=== PATIENT | male | born 2000 | race Two or more races ===

== ENCOUNTER 2020-03-17 07:58 | Emergency (ER) | payer MEDICAID ==
[~2020-03-17] VITALS: Ht 177.8 cm; Wt 90.9 kg
[2020-03-17 08:20] VITALS: BP 127/82
[2020-03-17] MEDS ORDERED: ONDANSETRON HCL 4 MG/2 ML VIAL IM ONE (09:00)
[2020-03-17] MEDS ORDERED: KETOROLAC TROMETHAMINE 30 MG/ML VIAL IM ONE (09:00)
[2020-03-17] MEDS ORDERED: ACETAMINOPHEN 500 MG TABLET PO ONE (09:00)
[2020-03-17 11:32] LABS: INFLUENZA TYPE A NEGATIVE FOR TYPE A (NEGATIVE); INFLUENZA TYPE B NEGATIVE FOR TYPE B (NEGATIVE)
== END 2020-03-17 11:17 | disposition home or self-care (01) ==
LOC: EMS 07:59
DX: R50.9 Fever, unspecified (principal); M79.10 Myalgia, unspecified site; R11.2 Nausea with vomiting, unspecified; R10.9 Unspecified abdominal pain; R19.7 Diarrhea, unspecified; Z20.828 Contact with and (suspected) exposure to other viral communicable diseases
CPT/HCPCS: 87804; 96372; 99284; J1885; J2405; U0003